=== PATIENT | female | born 1980 | race Caucasian/White ===

== ENCOUNTER → 2020-09-24 | Outpatient (CLI) | payer OTHER ==
[~2020-09-24] MED LIST: ADIPEX-P37.5 M1 PO; COLACE 100MG C100 MG PO; ESTRACE1 MG PO; HYDROCODON-ACE1 EAC6 PO; IBUPROFEN600 MG PO
[2020-09-24 12:41] LABS: HEMOGLOBIN 15.1 gm/dl (12.3-15.3); RED BLOOD COUNT 4.6 M/UL (4.00-5.10); WHITE BLOOD COUNT 8.6 K/UL (4.5-11.0)
== END ==
LOC: OPSV2 11:00
PROVIDERS: Obstetrics & Gynecology
DX: Z01.812 Encounter for preprocedural laboratory examination (principal); R10.2 Pelvic and perineal pain
CPT/HCPCS: 36415; 81001; 85025

== ENCOUNTER 2020-10-08 06:39 | Day surgery (SDC) | payer OTHER ==
[~2020-10-08] VITALS: Ht 162.6 cm; Wt 99.8 kg
[~2020-10-08 06:39] MED LIST changes: -COLACE 100MG C100 MG PO; -ESTRACE1 MG PO; -HYDROCODON-ACE1 EAC6 PO; -IBUPROFEN600 MG PO
[2020-10-08] MEDS ORDERED: HYDROCODON-ACE1 EAC6 PO (10:11)
[2020-10-08] MEDS ORDERED: IBUPROFEN600 MG PO (10:11)
[2020-10-08] MEDS ORDERED: COLACE 100MG C100 MG PO (10:11)
[2020-10-09 06:49] LABS: HEMOGLOBIN 12.6 gm/dl (12.3-15.3)
[2020-10-09] MEDS ORDERED: ESTRACE1 MG PO (09:06)
== END 2020-10-09 12:56 | disposition home or self-care (01) ==
LOC: OR 06:39 → MED SURG 4 14:00 → OR 10-09 12:56
PROVIDERS: Obstetrics & Gynecology
PROC: 0UT24ZZ Resection of Bilateral Ovaries, Percutaneous Endoscopic Approach (ICD-10-PCS; 2020-10-08)
PROC: 0UT74ZZ Resection of Bilateral Fallopian Tubes, Percutaneous Endoscopic Approach (ICD-10-PCS; 2020-10-08)
PROC: 0UT94ZZ Resection of Uterus, Percutaneous Endoscopic Approach (ICD-10-PCS; principal; 2020-10-08 07:30)
DX: N72 Inflammatory disease of cervix uteri (principal); N80.0 Endometriosis of uterus; N83.12 Corpus luteum cyst of left ovary; N83.11 Corpus luteum cyst of right ovary; F17.210 Nicotine dependence, cigarettes, uncomplicated; Z20.822 Contact with and (suspected) exposure to COVID-19; Z79.899 Other long term (current) drug therapy; Z98.51 Tubal ligation status
CPT/HCPCS: 36415; 85014; 85018; J0690; J1100; J1885; J2001; J2250; J2270; J2405; J2704; J2710; J2795; J3010